=== PATIENT | female | born 1975 | race Caucasian/White ===

== ENCOUNTER → 2019-02-17 11:47 | Outpatient (CLI) | payer BC | END | disposition home or self-care (01) | LOC: LAB 11:47 | DX: R10.2 Pelvic and perineal pain (principal) ==

== ENCOUNTER → 2019-02-18 | Outpatient (CLI) | payer BC | END | disposition home or self-care (01) | LOC: TOM 07:45 | DX: R10.2 Pelvic and perineal pain (principal); R10.827 Generalized rebound abdominal tenderness ==